=== PATIENT | female | born 1965 | race Caucasian/White ===

== ENCOUNTER 2018-07-01 13:46 | Inpatient (IN) | payer OTHER ==
[2018-07-01] VITALS (10 sets, daily range): BP systolic 122–143; BP diastolic 75–110
[~2018-07-01] VITALS: Ht 165.1 cm; Wt 53.9 kg
[~2018-07-01 13:46] MED LIST: ACID CONTROLLER10 MG PO; HYDROCODON-ACE1 EAC7 PO; HYDROCODON-ACE1 EACH PO; LIBRIUM10 MG PO; PENICILLIN VK250 MG PO; PENICILLIN VK500 M1 PO; ZOFRAN4 MG PO
[2018-07-01] MEDS ORDERED: SYNTHROID25 MC1 PO (13:54)
[2018-07-01 14:35] LABS: ABSOLUTE NEUTROPHILS 4.2 thou/uL (1.4-8.2); BASOPHILS 1.3 % (0.0-2.0); HEMATOCRIT 43.7 % (37.0-47.0); HEMOGLOBIN 15.3 gm/dL (12.0-15.0); LYMPHOCYTES 19.9 % (24.0-44.0); MCH 34.3 pg (26.0-34.0); MCV 98.1 fL (80.0-100.0); MONOCYTES 10.3 % (1.0-8.0); PLATELET COUNT 181 thou/uL (150-400); POLYS 68.5 % (36.0-66.0); RBC 4.45 mil/uL (4.20-5.00); RDW 13.6 % (10.5-14.5); WBC 6.1 thou/uL (4.0-11.0)
[2018-07-01 14:43] LABS: ANION GAP 14 mmol/L (7-16); BUN 16 mg/dL (7-18); CALCIUM 10.4 mg/dL (8.5-10.1); CHLORIDE 94 mmol/L (98-107); CO2 24 mmol/L (21-32); CREATININE 0.8 mg/dL (0.6-1.0); GLUCOSE 147 mg/dL (74-106); POTASSIUM 3.2 mmol/L (3.5-5.1); SODIUM 132 mmol/L (136-145)
[2018-07-01 14:51] LABS: TROPONIN-I <0.06 ng/mL (<0.06)
[2018-07-01 15:16] LABS: URINE BLOOD NEGATIVE (Negative); URINE CLARITY CLEAR; URINE COLOR YELLOW; URINE GLUCOSE-RANDOM* NEGATIVE (Negative); URINE KETONES 3+ (Negative); URINE LEUKOCYTES-REFLEX NEGATIVE (Negative); URINE NITRITE-REFLEX NEGATIVE (Negative); URINE PROTEIN (DIPSTICK) 1+ (Negative); URINE SPECIFIC GRAVITY >= 1.030 (1.005-1.035)
[2018-07-01 15:18] LABS: ICTOTEST (BILI CONFIRMATORY) Negative (Negative); URINE BILIRUBIN NEGATIVE (Negative)
[2018-07-01 15:28] LABS: SQUAMOUS 4-10 Moderate /LPF (0-3)
[2018-07-01 15:31] LABS: AMP/METHAMP Negative (Negative); BARBITURATES Negative (Negative); BENZODIAZEPINES Negative (Negative); COCAINE Negative (Negative); METHADONE Negative (Negative); OPIATES Negative (Negative); PCP Negative (Negative)
[2018-07-01 15:34] LABS: CASTS None Seen /LPF (None Seen); CRYSTALS None Seen /LPF (None Seen); URINE WBC-REFLEX 0-5 Rare /HPF (0-5)
[2018-07-01 15:35] LABS: BACTERIA-REFLEX 1-9 Few /HPF (None Seen); URINE RBC None Seen /HPF (0-2)
--- NOTE | 2018-07-01 15:53 | EKG ---
[place] [address] [place] [address] ELECTROCARDIOGRAM REPORT Name: MAGGIE PINTO [facility] [id number] ������������������ Admission: 07/01/18 ������������������ Attend Phys: Discharge: ������������������ Date of : 69 Report #: [id number] ����������������������������������������������������������������� [id number] THIS REPORT FOR: //name// [facility] ED Test Date: 2018-07-01 Test Time: 14:29:09 Pat Name: MAGGIE PINTO Department: Room: Gender: F Social Work Associate: WG : 1965 Requested By: Real Jorge Order Number: [id number] MD: Vinicius Ritter Measurements Intervals [place] Rate: 96 P: 36 MO: 137 QRS: -24 QRSD: 103 T: 11 QT: 366 QTc: 463 Interpretive Statements Sinus rhythm Borderline left axis deviation Compared to ECG 12/08/2010 10:56:17 T-wave abnormality no longer present Electronically Signed On 07-01-2018 15:52:55 DIGITAL AD TRAFFICKER by Vinicius Ritter [email or web address] ��������������������������������������������� <ELECTRONICALLY SIGNED> ���������������������������������������� By: Vinicius Ritter MD, [facility] ��������������������������������������������� 07/01/18 1552 1429 1429 Vinicius Ritter MD, FACC /EPI
[2018-07-01 17:18] LABS: MAGNESIUM 1.4 mg/dL (1.8-2.4); PHOSPHORUS 3.6 mg/dL (2.5-4.9)
[2018-07-01 18:15] LABS: FOLIC ACID 41.2 ng/mL (8.6-58.9)
--- NOTE | 2018-07-01 21:58 | NUR ---
DR. REYES CALLED BACK SEE NEW ORDERS.
[2018-07-02] VITALS (47 sets, daily range): BP systolic 92–162; BP diastolic 54–141
[2018-07-02 00:39] LABS: MAGNESIUM 2.1 mg/dL (1.8-2.4); POTASSIUM 3.2 mmol/L (3.5-5.1)
--- NOTE | 2018-07-02 04:18 | NUR ---
ASSUMED CARE OF PATIENT FROM ER AT 2130. PATIENT ADMITTED TO ROOM 242. PATIENT AGITATED AND RESTLESS. ATTEMPTING TO GET OUT OF BED. RESTRAINED PATIENT WRISTS. LORAZEPAM GIVEN INITIALLY EVERY 2 HOURS PATIENT WAS ASLEEP FOR THE 1HR REASSESSMENT. INCREASED TIMING OF ADMINISTRATION PATIENT IS MORE AWAKE AND CIWAs ARE HIGH. PATIENT MORE COHERENT, HAS LESS SLURRED SPEECH, MORE APPROPRIATE CONVERSATION. LUCIANO PLACED WITH GOOD UOP. PATIENT IS MAKING SOME PROGRESS TOWARD GOALS, WILL CONTINUE TO MONITOR.
[2018-07-02 04:34] LABS: HEMATOCRIT 42.3 % (37.0-47.0); HEMOGLOBIN 14.1 gm/dL (12.0-15.0); MCH 33.2 pg (26.0-34.0); MCHC 33.4 g/dL (28.0-37.0); MCV 99.5 fL (80.0-100.0); PLATELET COUNT 134 thou/uL (150-400); RBC 4.25 mil/uL (4.20-5.00); RDW 13.2 % (10.5-14.5); WBC 3.7 thou/uL (4.0-11.0)
[2018-07-02 04:53] LABS: ALBUMIN 3.6 g/dL (3.4-5.0); CREATININE 0.6 mg/dL (0.6-1.0); MAGNESIUM 1.8 mg/dL (1.8-2.4); POTASSIUM 3.6 mmol/L (3.5-5.1); TOTAL BILIRUBIN 1.1 mg/dL (<0.1-1.0); TOTAL PROTEIN 7.3 g/dL (6.4-8.2)
[2018-07-02 04:57] LABS: CALCIUM 8.4 mg/dL (8.5-10.1)
[2018-07-02 06:14] LABS: ABSOLUTE NEUTROPHILS 2.1 thou/uL (1.4-8.2)
[2018-07-02 06:15] LABS: PLATELET ESTIMATE DECREASED
[2018-07-02 08:26] LABS: MAGNESIUM 1.6 mg/dL (1.8-2.4); POTASSIUM 3.8 mmol/L (3.5-5.1)
[2018-07-02 13:25] LABS: MAGNESIUM 2.3 mg/dL (1.8-2.4)
--- NOTE | 2018-07-02 16:29 | NUR ---
ASSUMED CARE AT 0700 THIS AM. PATIENT RESTING QUIETLY ON PRECEDEX. PATIENT'S CIWA SCORES HAVE BEEN BETWEEN 15-17 THROUGHOUT MOST OF MY SHIFT. ATIVAN GIVEN NEEDED PER ORDERS. LUCIANO TO DD WITH ADEQUATE OUTPUT. PATIENT KEPT NPO DUE TO DROWSINESS. ASSESSMENT CHARTED. NO OTHER CONCERNS AT THIS. WILL CONTINUE TO MONITOR AND CARE PER PLAN OF CARE.
--- NOTE | 2018-07-02 21:41 | NUR ---
ASSUMED CARE OF PATIENT AROUND 1900. PATIENT ABLE TO WAKE UP AND ANSWER QUESTIONS. A/O X3, UNSURE OF SITUATION BUT ABLE TO STATE SHE IS IN THE HOSPITAL. PT C/O HEADACHE. TORADOL ADMINISTERED. PT STATES IT DOES NOT HELP BUT WAS ABLE TO GO BACK TO SLEEP. CIWA OF 12, LORAZEPAM NOT GIVEN PATIENT IS ON 0.4 OF PRECEDEX AND IS SLEEPING QUITE HEAVILY. PATIENT IS PROGRESSING TOWARD GOALS, WILL GIVEN REPORT TO ON-COMING RN AROUND 2200.
--- NOTE | 2018-07-02 23:08 | NUR ---
ASSUMED CARE OF PT FROM ALBA KOLB. WE DISCUSSED POC AND ORDERS.
[2018-07-03] VITALS (39 sets, daily range): BP systolic 91–156; BP diastolic 48–86
--- NOTE | 2018-07-03 05:06 | NUR ---
PT CURRENTLY RESTING COMFORTABLE IN BED. SR ON MONITOR. PT SATS 97% ON RA. PT ABLE TO AROUSE EASILY AND FOLLOWS COMMANDS. PT CONFUSED OF SITUATION ONLY. PT AFEBRILE AND VSS. PT REMAINS ON PRECEDEX GTT, FOLLOWING CIWA PROTOCOL. CONTINUES ON MAINTENANCE IVF. AM LABS TO BE REVIEWED. REQUIRED ONE DOSE OF PAIN MEDICATION THROUGHOUT SHIFT.
[2018-07-03 05:08] LABS: ALBUMIN 3.1 g/dL (3.4-5.0); CALCIUM 8.2 mg/dL (8.5-10.1); CREATININE 0.4 mg/dL (0.6-1.0); MAGNESIUM 1.7 mg/dL (1.8-2.4); POTASSIUM 3.9 mmol/L (3.5-5.1); TOTAL BILIRUBIN 0.6 mg/dL (<0.1-1.0); TOTAL PROTEIN 6.5 g/dL (6.4-8.2)
--- NOTE | 2018-07-03 14:03 | NUR ---
CM ASSESSMENT: CASE OPENED FOR DC PLANNING. CLINICAL INFO REVIEWED. ADMITTED WITH ETOH WITHDRAWAL SYMPTOMS AND HAD BEEN ON PRECEDEX GTT AND RECEIVING IV ATIVAN PER CIWA SCALE ASSESSMENTS. LETHARGIC AND CONFUSED YESTERDAY. TODAY, ALERT AND ORIENTED X4. MET WITH PT. PT LIVES IN [facility] WITH ROOMMATE/FRIEND SHE HAS KNOWN FOR DECADES. NO MEDICAL INSURANCE. WORKS CLEANING HOUSES BUT OFF WORK PAST COUPLE MONTHS R/T FOOT INJURY. PT STATES SHE HAS BEEN GETTING BY ON HER SAVINGS AND HER ROOMMATE IS A CLOSE FRIEND AND SUPPORTIVE. INDEPEMDENT WITH ADLS, HAS VEHICLE. PT INDICATES SHE HAS DONE 28 DAYS INPT ETOH TREATMENT MANY YEARS AGO IN [place]. PT DOES NOT BELIEVE ALCOHOL WITHDRAWAL IS WHY SHE WAS ADMITTED AND IS WONDERING WHAT TESTS ARE PLANNED FOR HER. I REVIEWED CIRCUMSTANCES AROUND HER ADMIT AND ENCOURAGED HER TO SPEAK WITH DR. REYES TODAY WHEN HE ROUNDS. PT IS NON COMMITTAL WHEN ANSWERING QUESTIONS ABOUT HER ETOH USE AND STATES SHE USED TO BE AN ALCOHOLIC, NOW JUST DRINK EVERY FEW DAYS. PT WAS NOT RECEPTIVE TO RESOURCES FOR TREATMENT AT THIS TIME. MULTIPLE RESOURCES FOR ETOH TREATMENT PROVIDED ON DC SUMMARY FOR PT. PLAN FOR WEANING OF PRECEDEX GTT AND IV BENZO'S ABLE. POSSIBLE DC OVER WEEKEND.
--- NOTE | 2018-07-03 19:38 | NUR ---
ASSUMED CARE OF PT AT APPROX 0700. PT IS ALERT AND ORIENTED X4, FORGETFUL AT TIMES. PT DENIES SOA. 02 MAINTAINED >90 ON RA. COMPLAINS OFPAIN THAT IS PARTIALLY RESOLVED BY PRN PAIN MEDICATION. TITRATING PRECEDEX GTT, PT TOLERATING WELL. MONITORING CIWA. PT UJPDATED ON PLAN OF CARE BUT STILL ASKS SEVERAL QUESTIONS REPEATEDLY. PT MAKING GOOD PROGRESS TOWARDS POC. WILL CONTINUE TO MONITOR.
[2018-07-03 21:26] LABS: URINE BILIRUBIN NEGATIVE (Negative); URINE BLOOD 1+ (Negative); URINE CLARITY CLEAR; URINE COLOR YELLOW; URINE GLUCOSE-RANDOM* NEGATIVE (Negative); URINE KETONES NEGATIVE (Negative); URINE NITRITE-REFLEX NEGATIVE (Negative); URINE PROTEIN (DIPSTICK) NEGATIVE (Negative); URINE SPECIFIC GRAVITY <= 1.005 (1.005-1.035); URINE UROBILINOGEN 0.2 E.U./dl (0.2-1.0)
[2018-07-03 21:27] LABS: URINE LEUKOCYTES-REFLEX 1+ (Negative)
[2018-07-03 21:35] LABS: BACTERIA-REFLEX 1-9 Few /HPF (None Seen); CASTS None Seen /LPF (None Seen); CRYSTALS None Seen /LPF (None Seen); MUCUS None Seen strn/LPF (None Seen); SQUAMOUS 0-3 Few /LPF (0-3); URINE RBC 0-2 Rare /HPF (0-2); URINE WBC-REFLEX 0-5 Rare /HPF (0-5)
[2018-07-04] VITALS (18 sets, daily range): BP systolic 104–146; BP diastolic 55–87
--- NOTE | 2018-07-04 04:37 | NUR ---
PT AOX3, FORGETFUL AND CONFUSED AT TIMES. C/O PAIN, PAIN MEDS GIVEN. AFEBRILE. VSS. SCORING 3 TO 7 ON CIWA. LORAZAPAM GIVEN Q4. OFF PRECEDEX AT 0000. LUCIANO CATHETER IN PLACE. OUTPUT NOTED. FLUID INFUSING. SKIN INTACT. FALL PRECAUTIONS AND SEIZURE PRECAUTIONS IN PLACE. NO COMPLAINS CURRENTLY. PT SLOWLY PROGRESSING TOWARDS GOAL. WILL CONTINUE TO MONITOR.
--- NOTE | 2018-07-04 18:43 | NUR ---
Assumed care of patient at 0700. Patient has been off precedex gtt since previous shift, only given oral hydrocodone for headache x1 through the day. Oriented to surrounding, cooperative, and calm. Rodriguez discontinued, able to void. Reports some burning with urination, antibiotic started for UTI. Med/surg orders, no available beds, anticipate discharge tomorrow. Continue to monitor.
[2018-07-05 04:24] VITALS: BP 121/75
--- NOTE | 2018-07-05 05:25 | NUR ---
ASSUMED PT CARE 0. PT ALERT AND ORIENTED. REASSESSMENT COMPLETED. PT TRANSFERED FROM ICU. VSS. IV DRESSING C/D/I, NO SIGNS OF INFILTRATION. PT SLEPT THROUGH THE NIGHT. DURING MORNING VITALS PT STATED SHE WAS ITCHING AND STILL COMPLAINING OF A CARRENO. WHEN MENTIONED CALLING SEED POTATO CUTTER ABOUT BENADRYL PT STATED " I JUST TOOK SOME ABOUT AN HOUR MEERA, I HAVE MY OWN IN MY BAG". INFORMED PT NOT TO TAKE HOME MEDS WHILE SHES IN HOSPITAL AND THEN HER MEDS WERE TAKEN TO PHARMACY. PT CALL LIGHT AND PERSONAL BELONINGS WITHIN REACH, WILL CONTINUE POC UNTIL EOS.
[2018-07-05 08:30] VITALS: BP 104/64
[2018-07-05 12:43] LABS: HEMATOCRIT 40.8 % (37.0-47.0); HEMOGLOBIN 14.1 gm/dL (12.0-15.0); MCH 34.1 pg (26.0-34.0); MCHC 34.5 g/dL (28.0-37.0); MCV 98.8 fL (80.0-100.0); PLATELET COUNT 188 thou/uL (150-400); RBC 4.13 mil/uL (4.20-5.00); RDW 13.1 % (10.5-14.5); WBC 3.3 thou/uL (4.0-11.0)
[2018-07-05 12:44] LABS: CREATININE 0.8 mg/dL (0.6-1.0); POTASSIUM 3.8 mmol/L (3.5-5.1)
[2018-07-05 13:02] LABS: ABSOLUTE NEUTROPHILS 1.9 thou/uL (1.4-8.2); ATYPICAL LYMPHS 4 %
--- NOTE | 2018-07-05 14:36 | H ---
[facility] [place] [address] HISTORY AND PHYSICAL Name: MAGGIE PINTO Room #: 427-P ADM IN M.R.#: [id number] Admission: 07/01/18 ������������������ Attend Phys: Akil Rodriguez MD, FAAF Discharge: ������������������ Date of : 69 Report #: [id number] THIS REPORT FOR: //name// CC: Akil Burgess [facility] unknown DATE OF SERVICE: 07/01/2018 CHIEF COMPLAINT: Alcohol withdrawal. HISTORY OF PRESENT ILLNESS: The patient is a 52-year-old white female with history of alcoholism, evaluated in the Emergency Department at [facility], not feeling very well for about a week. She is shaky, confused, feeling poorly, tachycardic on arrival. This improved after some IV fluids. Her last alcohol intake was about a week prior to this Emergency Room admission. She has also been complaining of right foot pain chronically over about the last 6-8 weeks. Surmise a list that she is in alcohol withdrawal and she is admitted to hospital. PAST MEDICAL HISTORY: Alcoholism, seizures likely associated with alcoholism, 4, para 4, migraine headaches, seasonal allergies, panic attacks, arthritis, cholecystectomy in about 2002 and hypothyroidism. MEDICATIONS: Levothyroxine 25 mcg 1 p.o. daily. ALLERGIES: No known drug allergies. SOCIAL HISTORY: She is , currently not working, a nonsmoker, heavy drinker. FAMILY HISTORY: Noncontributory. REVIEW OF SYSTEMS: She is not an accurate historian and is very confused. She is shaky and confused, tachycardic with dry mucous membranes. Remainder of system review is negative and not reliably obtainable. OBJECTIVE: VITAL SIGNS: Temperature is 36.8; pulse 131, 90 at the time of my exam following IV fluids. Respirations 20, blood pressure 122/75, pulse ox on room air is 100%. She weighs 120 pounds or 54.43 kg. GENERAL: She is confused. HEENT: Normocephalic. Head is atraumatic. Pupils equal, round, reactive to light and accommodation. Extraocular muscles intact. Pharynx unremarkable. NECK: Supple. Mucous membranes are dry. CARDIOVASCULAR: S1, S2. [facility] [address] [place] [address] HISTORY AND PHYSICAL Name: MAGGIE PINTO Room #: 427-P [facility] IN .R.#: [id number] Admission: 07/01/18 ������������������ Attend Phys: Akil Rodriguez MD, FAAF Discharge: ������������������ Date of : 69 Report #: [id number] CHEST: Clear. ABDOMEN: Soft, nontender. EXTREMITIES: No cyanosis, clubbing or edema. She does have some tenderness at the base of the right foot laterally at the base of the right fifth metatarsal and x-rays do show subacute fracture there. IMAGING: CT scan of the head is negative for any acute process or fracture or bleed and a CTA. Chest x-ray shows no acute cardiopulmonary processes. LABORATORY EVALUATION: CBC: White count is 6.1; hemoglobin 15.3; hematocrit 43.7; platelets 181,000. Differential white count 68.5% segmented neutrophils, 19.9% lymphocytes, 10% monocytes. Serum chemistry: Sodium 132, potassium is 3.2, chloride 94, CO2 of 24, anion gap 14, creatinine 0.8, estimated BUN 16. Estimated glomerular filtration rate 76. Glucose is 147, calcium is 10.4, phosphorus 3.6, magnesium 1.4. Troponin less than 0.06. Vitamin B12 of 561, folate 41.2. TSH 4.462. Serum alcohol less than 10. Urinalysis from a clean catch specimen, yellow clear urine, pH 6.0, specific gravity greater than 1.030, 1+ protein, 3+ ketones, 0-5 white cells per high powered field, 4-10 squamous epithelial cells, no crystals, 1-9 bacteria, no casts and no glucose. Toxicology for drugs of abuse was negative. Free T4 was 1.1. ASSESSMENT: Alcohol withdrawal, acute confusion, hyponatremia, hypokalemia, hypomagnesemia, tachycardia, volume depletion. PLAN: To admit to hospital. Alcohol withdrawal protocol. Psychiatric consult. ��������������������������������������������� <ELECTRONICALLY SIGNED> ���������������������������������������� By: Akil Rodriguez MD, FAAFP, FACEP ��������������������������������������������� 07/05/18 1436 03 17 Akil Rodriguez MD, FAAFP, FACEP /nt
[2018-07-05 16:36] VITALS: BP 105/62
[2018-07-05 20:24] VITALS: BP 116/55
--- NOTE | 2018-07-05 20:31 | NUR ---
VSS-AFEBRILE. LUNGS CLEAR-ROOM AIR. OOB TO SHOWER AND WALK UNIT-STEADY ON FEET. TOLERATED MEALS OK WITH NO REPORTED N/V. OCCASIONAL REPORTS OF HEADACHE, RELIEF NOTED WITH PRESCRIBED HYDROCODONE. MG+ REPLACED PER PROTOCOL, LEVEL REMAINED UNCHANGED ON RECHECK. PM NURSE TO REPLACE AGAIN AND SCHEDULE RECHECK. CALLS APPROPRIATELY FOR ANY NEEDED ASSISTANCE.
[2018-07-06 04:15] VITALS: BP 114/61
--- NOTE | 2018-07-06 05:17 | NUR ---
PT C/O HEADACHE X2,MANAGED WITH PO MED.NO SX OF ETOH WITHDRAWAL NOTED.PT COOPERATIVE WITH CARE.MG REPLACED PER PROTOCOL ,ORDER PUT IN FOR LAB RECHECK THIS AM.PER REPORT,PT REFUSED HER IVF,ENCOURAGED PO FLUIDS.ORDER NOTED FOR MIRALAX PER PT'S REQUEST.PT ANTICIPATING DC THIS AM.CALL LIGHT WITHIN REACH.
[2018-07-06 07:46] VITALS: BP 118/57
[2018-07-06 16:10] VITALS: BP 112/72
[2018-07-06 19:48] VITALS: BP 112/72
== END 2018-07-06 20:01 | disposition home or self-care (01) | DRG 563 ==
LOC: ER 13:46 → EROBS 17:01 → ICU 17:01 → 4E 07-04 22:09
PROVIDERS: Emergency Medicine; ADMIT Family Medicine
DX: S92.354A Nondisplaced fracture of fifth metatarsal bone, right foot, initial encounter for closed fracture (principal); E87.1 Hypo-osmolality and hyponatremia; N39.0 Urinary tract infection, site not specified; F10.239 Alcohol dependence with withdrawal, unspecified; G43.909 Migraine, unspecified, not intractable, without status migrainosus; M19.042 Primary osteoarthritis, left hand; M19.041 Primary osteoarthritis, right hand; E03.9 Hypothyroidism, unspecified; E83.42 Hypomagnesemia; E86.9 Volume depletion, unspecified; R00.0 Tachycardia, unspecified; E87.6 Hypokalemia; B96.20 Unspecified Escherichia coli [E. coli] as the cause of diseases classified elsewhere; Z90.49 Acquired absence of other specified parts of digestive tract; Z79.899 Other long term (current) drug therapy; X58.XXXA Exposure to other specified factors, initial encounter; Y93.89 Activity, other specified; Y92.89 Other specified places as the place of occurrence of the external cause; Y99.8 Other external cause status
CPT/HCPCS: 10078; 10183; 10203; 10783